=== PATIENT | female | born 1960 | race African-American/Black ===

== ENCOUNTER 2017-11-04 22:40 | Inpatient (IN) | payer MEDICAID, OTHER ==
[~2017-11-04] VITALS: Ht 165.1 cm; Wt 143.8 kg
[2017-11-05] MEDS ORDERED: ONDANSETRON HCL 4MG/2ML VIAL IV STA (01:26)
[2017-11-05] MEDS ORDERED: KETOROLAC 30MG/ML VIAL IV STA (01:26)
[2017-11-05] MEDS ORDERED: CEFTRIAXONE 1 G PREMIX 50 ML IV ONE (01:30)
[2017-11-05] MEDS ORDERED: AZITHROMYCIN 500 MG in DEXT 5% WATER 250 ML IV ONE (01:30)
[2017-11-05 01:50] LABS: HEMATOCRIT. 37.9 % (36.0-48.0); HEMOGLOBIN. 12.1 g/dL (12.0-16.0); MEAN CORPUSCULAR HEMOGLOBIN 26.7 pg (28.0-32.0); MEAN CORPUSCULAR VOLUME 83.4 fL (81.0-99.0); MEAN PLATELET VOLUME 8.9 fl (7.4-10.4); PLATELET 234 x1000/uL (130-400); RED BLOOD CELL COUNT 4.54 mill/uL (4.2-5.4); RED CELL DISTRIBUTION WIDTH 14.5 % (11.6-14.6)
[2017-11-05 01:54] LABS: INR 1.1; PROTHROMBIN TIME 11.3 sec (9.4-11.6)
[2017-11-05 02:09] LABS: CARBON DIOXIDE 30 mEq/L (21-32); CHLORIDE 101 mEq/L (98-107)
[2017-11-05 03:50] LABS: ATYPICAL LYMPHOCYTES 1; PLATELET ESTIMATE NORMAL
[2017-11-05] MEDS ORDERED: LABETALOL HCL 20MG/4ML CARPUJECT IV ONE (04:15)
[2017-11-05] MEDS ORDERED: CLONIDINE 0.1MG TABLET PO PRN (11:15)
[2017-11-05] MEDS ORDERED: CEFTRIAXONE 1 G PREMIX 50 ML IV SCH (11:15)
[2017-11-05] MEDS ORDERED: ONDANSETRON HCL 4MG/2ML VIAL IV PRN (11:15)
[2017-11-05] MEDS ORDERED: MAGNESIUM/ALUMINUM HYDROXIDE/SIMETHICONE 30ML UDC PO PRN (11:15)
[2017-11-05] MEDS ORDERED: GUAIFENESIN 200MG/10ML SUGAR FREE UDC PO PRN (11:15)
[2017-11-05] MEDS ORDERED: DOCUSATE SODIUM 100MG CAPSULE PO PRN (11:15)
[2017-11-05] MEDS ORDERED: ENOXAPARIN 40MG/0.4ML SYR SUBCUT SCH (11:15)
[2017-11-05] MEDS ORDERED: ACETAMINOPHEN 325MG TABLET PO PRN (11:15)
[2017-11-05 13:00] VITALS: BP 185/107
[2017-11-05] MEDS: HYDROCODONE/ACETAMINOPHEN 5/325MG TABLET PO PRN (14:25)
[2017-11-05] MEDS ORDERED: CLONIDINE 0.2MG TABLET PO PRN (15:00)
[2017-11-05 15:45] LABS: CHLORIDE 101 mEq/L (98-107)
[2017-11-05 15:54] LABS: CARBON DIOXIDE 32 mEq/L (21-32); CREATINE KINASE 236 IU/L (26-192)
[2017-11-05 15:55] LABS: CREATINE KINASE MB FRACTION 1.3 ng/mL (0.5-3.6); TROPONIN I < 0.02 ng/mL (0.00-0.04)
[2017-11-05] MEDS: LOSARTAN POTASSIUM 25 MG TABLET PO SCH ×2 (16:31→21:43)
[2017-11-05] MEDS: AMLODIPINE 5MG TABLET PO SCH ×2 (16:31→21:43)
[2017-11-05] MEDS ORDERED: CLON0.1T PO (16:41)
[2017-11-05] MEDS ORDERED: HYDR12.54 PO (16:42)
[2017-11-05] MEDS ORDERED: CLONIDINE 0.1MG TABLET PO SCH (17:00)
[2017-11-05] MEDS ORDERED: HYDROCHLOROTHIAZIDE 25MG TABLET PO SCH (18:00)
[2017-11-05 20:00] VITALS: BP 154/68
[2017-11-05] MEDS: ENOXAPARIN 40MG/0.4ML SYR SUBCUT SCH (21:44)
[2017-11-05] MEDS: IPRATROPIUM/ALBUTEROL 0.5-3(2.5)MG/3ML NEB INH PRN (23:58)
[2017-11-06] VITALS: BP 135/68
[2017-11-06 02:59] LABS: CLARITY URINE CLEAR (CLEAR); COLOR URINE YELLOW (YELLOW); KETONES URINE NEGATIVE (NEGATIVE); LEUKOCYTE ESTERASE URINE 2+ (NEGATIVE); NITRITE URINE NEGATIVE (NEGATIVE); OCCULT BLOOD URINE NEGATIVE (NEGATIVE); PROTEIN URINE NEGATIVE (NEGATIVE); SPECIFIC GRAVITY URINE 1.019 (1.005-1.030); UROBILINOGEN URINE 0.2 E.U./dL (0.2-1.0)
[2017-11-06 04:00] VITALS: BP 136/84
[2017-11-06] MEDS: CEFTRIAXONE 1 G PREMIX 50 ML IV SCH (05:34)
[2017-11-06] MEDS: IPRATROPIUM/ALBUTEROL 0.5-3(2.5)MG/3ML NEB INH PRN ×4 (05:56→15:01)
[2017-11-06 06:26] LABS: BASOPHILS % 0.7 % (0.0-2.0); EOSINOPHILS % 4.7 % (0.0-5.0); HEMATOCRIT. 35.3 % (36.0-48.0); HEMOGLOBIN. 11.5 g/dL (12.0-16.0); LYMPHOCYTES % 45.3 % (20.0-50.0); MEAN CORPUSCULAR VOLUME 83.1 fL (81.0-99.0); MEAN PLATELET VOLUME 9.3 fl (7.4-10.4); MONOCYTES % 13.5 % (2.0-8.0); NEUTROPHILS % 35.8 % (40.0-76.0); PLATELET 240 x1000/uL (130-400); RED BLOOD CELL COUNT 4.25 mill/uL (4.2-5.4); RED CELL DISTRIBUTION WIDTH 14.4 % (11.6-14.6)
[2017-11-06 06:45] LABS: *AMPHETAMINES SCREEN URINE NEGATIVE (NEGATIVE); *BARBITURATES SCREEN URINE NEGATIVE (NEGATIVE); *BENZODIAZEPINES SCREEN URINE NEGATIVE (NEGATIVE); *COCAINE SCREEN URINE NEGATIVE (NEGATIVE); CANNABINOID URINE SCREEN NEGATIVE (NEGATIVE); METHADONE URINE SCREEN NEGATIVE (NEGATIVE); OPIATES URINE SCREEN PRESUMTIVE POSITIVE (NEGATIVE); PHENCYCLIDINE URINE SCREEN NEGATIVE (NEGATIVE)
[2017-11-06 08:00] VITALS: BP 138/69
[2017-11-06] MEDS: LOSARTAN POTASSIUM 25 MG TABLET PO SCH ×2 (08:48→20:46)
[2017-11-06] MEDS: AMLODIPINE 5MG TABLET PO SCH ×2 (08:48→20:46)
[2017-11-06] MEDS: AZITHROMYCIN 500 MG TABLET PO SCH (08:48)
[2017-11-06] MEDS: HYDROCODONE/ACETAMINOPHEN 5/325MG TABLET PO PRN (08:49)
[2017-11-06] MEDS: ENOXAPARIN 40MG/0.4ML SYR SUBCUT SCH ×2 (08:49→20:47)
[2017-11-06] MEDS: HYDROCHLOROTHIAZIDE 25MG TABLET PO SCH (08:54)
[2017-11-06] MEDS: CLONIDINE 0.1MG TABLET PO SCH (09:00)
[2017-11-06 11:46] VITALS: BP 112/66
[2017-11-06 14:18] LABS: CREATINE KINASE 221 IU/L (26-192); CREATINE KINASE MB FRACTION 1.2 ng/mL (0.5-3.6); TROPONIN I < 0.02 ng/mL (0.00-0.04)
[2017-11-06 16:26] VITALS: BP 133/76
[2017-11-06] MEDS ORDERED: IPRATROPIUM/ALBUTEROL 0.5-3(2.5)MG/3ML NEB HHN PRN (16:30)
[2017-11-06] MEDS: METHYLPREDNISOLONE SOD SUCC 40 MG/ML VIAL IV SCH ×2 (17:20→20:46)
[2017-11-06 20:00] VITALS: BP 175/84
[2017-11-06] MEDS: IPRATROPIUM/ALBUTEROL 0.5-3(2.5)MG/3ML NEB INH SCH ×2 (20:20→23:54)
[2017-11-06] MEDS: BUDESONIDE 0.5MG/2ML NEB HHN SCH (20:20)
[2017-11-06] MEDS: FAMOTIDINE 20MG TABLET PO SCH (20:46)
[2017-11-06] MEDS: CLONIDINE 0.1MG TABLET PO PRN (20:46)
[2017-11-06] MEDS: MONTELUKAST SODIUM 10MG TABLET PO SCH (20:46)
[2017-11-07] VITALS: BP 155/83
[2017-11-07] MEDS: IPRATROPIUM/ALBUTEROL 0.5-3(2.5)MG/3ML NEB INH SCH ×5 (03:36→20:03)
[2017-11-07 04:00] VITALS: BP 178/86
[2017-11-07] MEDS: METHYLPREDNISOLONE SOD SUCC 40 MG/ML VIAL IV SCH ×2 (04:59→18:00)
[2017-11-07] MEDS: CEFTRIAXONE 1 G PREMIX 50 ML IV SCH (04:59)
[2017-11-07] MEDS: CLONIDINE 0.1MG TABLET PO PRN (04:59)
[2017-11-07 08:03] LABS: BASOPHILS % 0.2 % (0.0-2.0); HEMATOCRIT. 35.5 % (36.0-48.0); HEMOGLOBIN. 11.9 g/dL (12.0-16.0); MEAN CORPUSCULAR HEMOGLOBIN 27.7 pg (28.0-32.0); MEAN CORPUSCULAR VOLUME 82.5 fL (81.0-99.0); MEAN PLATELET VOLUME 9.3 fl (7.4-10.4); MONOCYTES % 1.3 % (2.0-8.0); NEUTROPHILS % 89.5 % (40.0-76.0); PLATELET 249 x1000/uL (130-400); RED CELL DISTRIBUTION WIDTH 14.2 % (11.6-14.6)
[2017-11-07 08:10] VITALS: BP 163/89
[2017-11-07] MEDS: CLONIDINE 0.1MG TABLET PO SCH ×2 (08:30→20:50)
[2017-11-07] MEDS: ENOXAPARIN 40MG/0.4ML SYR SUBCUT SCH ×2 (08:30→20:52)
[2017-11-07] MEDS: AZITHROMYCIN 500 MG TABLET PO SCH (08:30)
[2017-11-07] MEDS: HYDROCHLOROTHIAZIDE 25MG TABLET PO SCH (08:31)
[2017-11-07] MEDS: LOSARTAN POTASSIUM 25 MG TABLET PO SCH ×2 (08:31→20:53)
[2017-11-07] MEDS: FAMOTIDINE 20MG TABLET PO SCH ×2 (08:31→20:48)
[2017-11-07] MEDS: AMLODIPINE 5MG TABLET PO SCH ×2 (08:31→20:49)
[2017-11-07] MEDS: BUDESONIDE 0.5MG/2ML NEB HHN SCH ×2 (08:36→20:03)
[2017-11-07 09:18] LABS: CHLORIDE 102 mEq/L (98-107)
[2017-11-07 10:11] LABS: CARBON DIOXIDE 22 mEq/L (21-32); CREATINE KINASE 201 IU/L (26-192); CREATINE KINASE MB FRACTION 0.8 ng/mL (0.5-3.6); TROPONIN I < 0.02 ng/mL (0.00-0.04)
[2017-11-07] MEDS ORDERED: AMLODIPINE 5MG TABLET PO SCH (11:30)
[2017-11-07 11:53] VITALS: BP 145/84
[2017-11-07 16:00] VITALS: BP 156/76
[2017-11-07 20:00] VITALS: BP 165/90
[2017-11-07] MEDS: MONTELUKAST SODIUM 10MG TABLET PO SCH (20:48)
[2017-11-08] VITALS: BP 166/85
[2017-11-08] MEDS: IPRATROPIUM/ALBUTEROL 0.5-3(2.5)MG/3ML NEB INH SCH ×3 (00:11→09:56)
[2017-11-08] MEDS ORDERED: CEFTRIAXONE 1,000 MG in DEXTROSE 5% WATER 50 ML IV SCH (06:00)
[2017-11-08 07:32] LABS: HEMATOCRIT. 34.3 % (36.0-48.0); HEMOGLOBIN. 11.2 g/dL (12.0-16.0); MEAN CORPUSCULAR HEMOGLOBIN 27.1 pg (28.0-32.0); MEAN CORPUSCULAR VOLUME 82.7 fL (81.0-99.0); MEAN PLATELET VOLUME 9.4 fl (7.4-10.4); PLATELET 291 x1000/uL (130-400); RED BLOOD CELL COUNT 4.15 mill/uL (4.2-5.4); RED CELL DISTRIBUTION WIDTH 14.4 % (11.6-14.6)
[2017-11-08] MEDS: FAMOTIDINE 20MG TABLET PO SCH (09:03)
[2017-11-08] MEDS: ENOXAPARIN 40MG/0.4ML SYR SUBCUT SCH (09:03)
[2017-11-08] MEDS: LOSARTAN POTASSIUM 25 MG TABLET PO SCH (09:03)
[2017-11-08] MEDS: HYDROCHLOROTHIAZIDE 25MG TABLET PO SCH (09:04)
[2017-11-08] MEDS: CLONIDINE 0.1MG TABLET PO SCH (09:04)
[2017-11-08] MEDS: AZITHROMYCIN 500 MG TABLET PO SCH (09:04)
[2017-11-08] MEDS: AMLODIPINE 5MG TABLET PO SCH (09:04)
[2017-11-08] MEDS: METHYLPREDNISOLONE SOD SUCC 40 MG/ML VIAL IV SCH (09:04)
[2017-11-08] MEDS: BUDESONIDE 0.5MG/2ML NEB HHN SCH (09:56)
[2017-11-08 10:52] VITALS: BP 158/84
[2017-11-08 14:44] LABS: PLATELET ESTIMATE NORMAL
[2017-11-08] MEDS ORDERED: PREDNISONE 20MG TABLET PO SCH (17:00)
== END 2017-11-08 12:10 | disposition home or self-care (01) | DRG 133 ==
LOC: EDBD 22:40 → ER 22:45 → 7WST 11-05 02:59 → EDBEDREQSVC 11-05 03:03 → EDBEDREQ 11-05 03:03 → ENRESERV 11-05 12:03
PROVIDERS: ADMIT Internal Medicine; ATTEND Internal Medicine
DX: J96.00 Acute respiratory failure, unspecified whether with hypoxia or hypercapnia (principal); J18.9 Pneumonia, unspecified organism; J45.901 Unspecified asthma with (acute) exacerbation; F11.20 Opioid dependence, uncomplicated; Z68.43 Body mass index [BMI] 50.0-59.9, adult; E83.51 Hypocalcemia; I11.9 Hypertensive heart disease without heart failure; J20.9 Acute bronchitis, unspecified; N39.0 Urinary tract infection, site not specified; D64.9 Anemia, unspecified; R07.89 Other chest pain; E66.9 Obesity, unspecified; E78.5 Hyperlipidemia, unspecified; R73.9 Hyperglycemia, unspecified; G40.909 Epilepsy, unspecified, not intractable, without status epilepticus; J42 Unspecified chronic bronchitis; Z79.899 Other long term (current) drug therapy; Z80.0 Family history of malignant neoplasm of digestive organs; Z91.041 Radiographic dye allergy status; Z98.891 History of uterine scar from previous surgery; Z88.0 Allergy status to penicillin
CPT/HCPCS: 36415; 71045; 80048; 80053; 80061; 80305; 81001; 82550; 82553; 83605; 83735; 83880; 84443; 84484; 85025; 85610; 87040; 87070; 87086; 87107; 87804; 93005; 93306; 93970; 94640; 94664; 96365; 96366; 96368; 96375; 99285; J0456; J0696; J1650; J1885; J2405; J2920; J3490; J7050; J7060; J7620; J7626

== ENCOUNTER 2024-11-28 03:38 | Inpatient (IN) | payer SELFPAY ==
[~2024-11-28] VITALS: Ht 165.1 cm; Wt 134.9 kg
[2024-11-28] VITALS (8 sets, daily range): BP systolic 153–181; BP diastolic 76–92; PULSE 75–106; RESP 18–22; TEMP 36.6–37.1; O2SAT 95–100
[2024-11-28] MEDS: BUDESONIDE 0.5MG/2ML NEB HHN SCH (02:27)
[2024-11-28] MEDS: IPRATROPIUM/ALBUTEROL 0.5-3(2.5)MG/3ML NEB HHN SCH (02:47)
[~2024-11-28 03:38] MED LIST: CLON0.1T PO; HYDR25TA MT; LOSA50TA41 PO; MONT-39 MT; [UNRECOGNIZED DRUG - OTHER]
[2024-11-28 04:36] LABS: HEMATOCRIT. 33.1 % (36.0-48.0); HEMOGLOBIN. 10.7 g/dL (12.0-16.0); MEAN CORPUSCULAR HEMOGLOBIN 26.7 pg (28.0-32.0); MEAN CORPUSCULAR HGB CONC 32.2 g/dL (31.0-37.0); MEAN CORPUSCULAR VOLUME 82.9 fL (81.0-99.0); PLATELET 219 x1000/uL (130-400); RED BLOOD CELL COUNT 3.99 mill/uL (4.2-5.4)
[2024-11-28 04:42] LABS: CHLORIDE 108 mEq/L (98-107); SODIUM 143 mEq/L (136-145)
[2024-11-28 04:43] LABS: CALCIUM 8.7 mg/dL (8.7-10.4); CARBON DIOXIDE 31 mEq/L (21-32)
[2024-11-28 04:48] LABS: CREATININE 1.9 mg/dL (0.6-1.0); GLUCOSE 118 mg/dL (70-105); UREA NITROGEN BLOOD 24 mg/dL (9-23)
[2024-11-28 04:52] LABS: PARTIAL THROMBOPLASTIN TIME 27.3 sec (23.4-31.0); PROTHROMBIN TIME 11.1 sec (9.6-11.0)
[2024-11-28 04:57] LABS: DIFFERENTIAL COMMENT 1
[2024-11-28] MEDS: METHYLPREDNISOLONE SOD SUCC 125MG/2ML (ACT-O-VIAL) IV STA (05:00)
[2024-11-28 05:01] LABS: TROPONIN I HIGH SENSITIVITY 44 ng/L (3.0-34)
[2024-11-28] MEDS: CLONIDINE 0.1MG TABLET PO NR (05:07)
[2024-11-28] MEDS: AMLODIPINE 5MG TABLET PO NR (05:08)
[2024-11-28] MEDS: IPRATROPIUM BROMIDE (0.02%) 0.5MG/2.5ML NEB HHN STA (05:17)
[2024-11-28] MEDS: ALBUTEROL (0.083%) 2.5MG/3ML NEB HHN STA (05:18)
[2024-11-28] MEDS: HYDROCHLOROTHIAZIDE 25MG TABLET PO NR (05:18)
[2024-11-28] MEDS ORDERED: IPRATROPIUM/ALBUTEROL 0.5-3(2.5)MG/3ML NEB HHN PRN (06:30)
[2024-11-28] MEDS ORDERED: DOCUSATE SODIUM 100MG CAPSULE PO PRN (06:30)
[2024-11-28] MEDS ORDERED: MAGNESIUM/ALUMINUM HYDROXIDE/SIMETHICONE 30ML UDC PO PRN (06:30)
[2024-11-28] MEDS ORDERED: ONDANSETRON HCL 4MG/2ML INJ IV PRN (06:30)
[2024-11-28] MEDS ORDERED: ACETAMINOPHEN 325MG TABLET PO PRN (06:30)
[2024-11-28] MEDS: HYDRALAZINE 20MG/ML VIAL IV NR (07:40)
[2024-11-28] MEDS: METHYLPREDNISOLONE SOD SUCC 125MG/2ML (ACT-O-VIAL) IV SCH (07:40)
[2024-11-28] MEDS: ENOXAPARIN 40MG/0.4ML SYR SUBCUT SCH (07:41)
[2024-11-28] MEDS ORDERED: LOSARTAN 50 MG TABLET PO SCH (09:00)
[2024-11-28] MEDS: PANTOPRAZOLE SODIUM 40 MG/VIAL IV SCH (09:31)
[2024-11-28] MEDS: CLONIDINE 0.1MG TABLET PO SCH (09:31)
[2024-11-28 10:33] LABS: ANISOCYTOSIS 1+; PLATELET ESTIMATE NORMAL
[2024-11-28] MEDS: HYDRALAZINE 20MG/ML VIAL IV PRN (11:12)
[2024-11-28 13:07] LABS: TROPONIN I HIGH SENSITIVITY 32 ng/L (3.0-34)
[2024-11-28] MEDS: MONTELUKAST SODIUM 10MG TABLET PO SCH (17:40)
[2024-11-28] MEDS: GUAIFENESIN 200MG/10ML SUGAR FREE UDC PO PRN (17:43)
[2024-11-28] MEDS: ACETAMINOPHEN 325MG TABLET PO PRN (20:30)
[2024-11-28] MEDS: AMLODIPINE 5MG TABLET PO SCH (20:30)
[2024-11-29] VITALS (11 sets, daily range): BP systolic 150–196; BP diastolic 72–99; PULSE 79–100; RESP 18–21; TEMP 35.7–36.6; O2SAT 94–100
[2024-11-29] MEDS: CLONIDINE 0.1MG TABLET PO PRN (04:39)
[2024-11-29 07:24] LABS: POTASSIUM 4.2 mEq/L (3.5-5.1)
[2024-11-29 07:25] LABS: CALCIUM 9.1 mg/dL (8.7-10.4)
[2024-11-29 07:30] LABS: CREATININE 1.8 mg/dL (0.6-1.0); THYROID STIMULATING HORMONE 0.24 uIU/mL (0.55-4.78)
[2024-11-29 07:32] LABS: T4 FREE 0.94 ng/dL (0.89-1.76)
[2024-11-29 08:17] LABS: HEMATOCRIT. 34.2 % (36.0-48.0); HEMOGLOBIN. 10.9 g/dL (12.0-16.0); MEAN CORPUSCULAR HEMOGLOBIN 26.6 pg (28.0-32.0); MEAN CORPUSCULAR HGB CONC 31.8 g/dL (31.0-37.0); MEAN CORPUSCULAR VOLUME 83.6 fL (81.0-99.0); MEAN PLATELET VOLUME 10.7 fl (7.4-10.4); PLATELET 211 x1000/uL (130-400); RED CELL DISTRIBUTION WIDTH 16.8 % (11.6-14.6); WHITE BLOOD COUNT 13.1 x1000/uL (4.5-11.0)
[2024-11-29] MEDS: HYDROCHLOROTHIAZIDE 25MG TABLET PO SCH (09:00)
[2024-11-29 09:20] LABS: DIFFERENTIAL COMMENT 1
[2024-11-29] MEDS ORDERED: DEXTL PO (10:52)
[2024-11-29] MEDS ORDERED: MONT-46 PO (10:52)
[2024-11-29] MEDS ORDERED: AMLO5TAB88 PO (10:52)
[2024-11-29] MEDS ORDERED: P20 PO (10:52)
[2024-11-29] MEDS ORDERED: ALBU18HF2 IH (10:52)
[2024-11-29] MEDS ORDERED: HYDR25TA PO (10:52)
[2024-11-29] MEDS ORDERED: CLON0.1T PO (10:52)
[2024-11-29 12:43] LABS: ANISOCYTOSIS 1+
[2024-11-29 12:44] LABS: PLATELET ESTIMATE NORMAL
[2024-11-29] MEDS ORDERED: PANT40TA51 PO (13:17)
[2024-11-29] MEDS: CLONIDINE 0.2MG TABLET PO NR (18:30)
[2024-11-29] MEDS: METHYLPREDNISOLONE SOD SUCC 40MG/ML (ACT-O-VIAL) IV SCH (22:45)
[2024-11-30] VITALS: BP 158/83; PULSE 103; RESP 19; TEMP 36.1; O2SAT 100
[2024-11-30 02:27] VITALS: PULSE 72; RESP 18; O2SAT 95
[2024-11-30 04:00] VITALS: BP 158/76; PULSE 103; RESP 19; TEMP 36.1; O2SAT 100
[2024-11-30] MEDS ORDERED: HYDR50TA PO (07:28)
[2024-11-30 08:00] VITALS: BP 202/100; PULSE 100; RESP 18; TEMP 36.3; O2SAT 94
[2024-11-30 08:07] VITALS: PULSE 110; RESP 20
[2024-11-30] MEDS: HYDROCHLOROTHIAZIDE 25MG TABLET PO SCH (09:31)
[2024-11-30] MEDS: METHYLPREDNISOLONE SOD SUCC 40MG/ML (ACT-O-VIAL) IV SCH (09:32)
[2024-11-30] MEDS ORDERED: ATOR20TA65 PO (11:00)
[2024-11-30 12:00] VITALS: BP 188/77; PULSE 99; RESP 17; TEMP 36.7; O2SAT 99
== END 2024-11-30 13:10 | disposition home or self-care (01) | DRG 199 ==
LOC: ER 03:40 → 6WST 05:07 → EDBEDREQTM 05:50 → EDBEDREQ 05:50
PROVIDERS: ADMIT Internal Medicine; ATTEND Internal Medicine
DX: I16.1 Hypertensive emergency (principal); J45.901 Unspecified asthma with (acute) exacerbation; D64.9 Anemia, unspecified; I10 Essential (primary) hypertension; E78.5 Hyperlipidemia, unspecified; Z79.899 Other long term (current) drug therapy; Z88.0 Allergy status to penicillin; K59.00 Constipation, unspecified; Z91.041 Radiographic dye allergy status
CPT/HCPCS: 36415; 71045; 80048; 80061; 83880; 84439; 84443; 84484; 85025; 93005; 94070; 94640; 94664; 98960; 99285; A4606; J0360; J1650; J2470; J2919; J2920; J7626